=== PATIENT | female | born 1985 | race Caucasian/White ===

== ENCOUNTER 2017-10-27 16:44 | Emergency (ER) | payer OTHER ==
[~2017-10-27] VITALS: Ht 170.2 cm; Wt 65.6 kg
[2017-10-27] MEDS ORDERED: CLINDAMYCIN HC150 MG PO (22:04)
[2017-10-27 22:21] VITALS: BP 112/51
== END 2017-10-27 22:22 | disposition home or self-care (01) ==
LOC: EME 16:44
PROC: 0H9DXZZ Drainage of Right Lower Arm Skin, External Approach (ICD-10-PCS; principal; 2017-10-27)
DX: L02.413 Cutaneous abscess of right upper limb (principal); F14.10 Cocaine abuse, uncomplicated; F11.10 Opioid abuse, uncomplicated; K59.00 Constipation, unspecified; M25.522 Pain in left elbow; Z87.442 Personal history of urinary calculi; F17.200 Nicotine dependence, unspecified, uncomplicated
CPT/HCPCS: 74019; 81003; 81025; 99281; 99284; J1885